=== PATIENT | male | born 1970 | race Caucasian/White ===

== ENCOUNTER 2018-01-16 16:32 | Emergency (ER) | payer BC, OTHER ==
[2018-01-16] MEDS ORDERED: SOD CHLORIDE 0.9% 1,000 ML IV (16:38)
[2018-01-16 17:24] LABS: ADD MAN DIFF? NO
[2018-01-16 17:26] LABS: WHITE BLOOD COUNT 6.7 10^3/ul (4.8-10.8)
[2018-01-16 17:26] LABS: BASOPHILS % 0.4 % (0.0-2.0); EOSINOPHILS # 0.1 10^3/ul (0.0-0.5); EOSINOPHILS % 2.1 % (0.0-7.0); HEMATOCRIT 42.4 % (42.0-52.0); HEMOGLOBIN 12.8 g/dl (14.0-18.0); LYMPHOCYTES # 1.6 10^3/ul (0.8-2.9); LYMPHOCYTES % 24.6 % (15.0-51.0); MEAN CORPUSCULAR HEMOGLOBIN 23.7 pg (29.0-33.0); MEAN CORPUSCULAR HGB CONC 30.2 g/dl (32.0-37.0); MEAN CORPUSCULAR VOLUME 78.4 fl (82.0-101.0); MEAN PLATELET VOLUME 9.7 fl (7.4-10.4); MONOCYTE # 0.6 10^3/ul (0.3-0.9); MONOCYTES % 8.4 % (0.0-11.0); NEUTROPHIL # 4.3 10^3/ul (1.6-7.5); NEUTROPHILS % 64.4 % (39.0-77.0); PLATELET COUNT 294 10^3/UL (140-415); RED BLOOD COUNT 5.41 10^6/ul (4.70-6.10); RED CELL DISTRIBUTION WIDTH 14.2 % (11.5-14.5)
[2018-01-16 17:42] LABS: INR 0.93; PROTIME 12.5 Sec (11.9-14.9)
[2018-01-16 17:43] LABS: PARTIAL THROMBOPLASTIN TIME 23.8 Sec (23.0-35.0)
[2018-01-16 17:44] LABS: HEMOGLOBIN A1C 4.6 % (0-5.9)
[2018-01-16 17:48] LABS: ALBUMIN 4.1 g/dl (3.3-4.9); ALKALINE PHOSPHATASE 86 IU/L (42-121); ASPARTATE AMINO TRANSFERASE 35 IU/L (15-46); BILIRUBIN,INDIRECT 0.4 mg/dl (0-1.1); BILIRUBIN,TOTAL 0.4 mg/dl (0.2-1.3); BLOOD UREA NITROGEN 16 mg/dl (7-20); CALCIUM 9.2 mg/dl (8.4-10.2); CHLORIDE 110 mmol/L (97-110); CHOL/HDL RATIO 4.2 RATIO; CHOLESTEROL 166 mg/dl (100-200); CREATININE 1.36 mg/dl (0.61-1.24); GLUCOSE 62 mg/dl (70-220); HDL CHOLESTEROL 39 mg/dl (27-67); LDL CHOLESTEROL,CALCULATED 90 mg/dl; SODIUM 146 mmol/L (135-144); TOTAL PROTEIN 7.5 g/dl (6.1-8.1); TRIGLYCERIDES 186 mg/dl (0-149)
[2018-01-16 17:49] LABS: ANION GAP 9 (5-13); CARBON DIOXIDE 27 mmol/L (21-31)
[2018-01-16 17:53] LABS: ALANINE AMINOTRANSFERASE 30 IU/L (13-69)
[2018-01-16 18:00] LABS: TROPONIN-I 0.022 ng/ml (0.000-0.120)
== END 2018-01-16 18:38 | disposition home or self-care (01) ==
LOC: E/R 16:32
DX: E16.2 Hypoglycemia, unspecified (principal); F17.210 Nicotine dependence, cigarettes, uncomplicated; R41.82 Altered mental status, unspecified
CPT/HCPCS: 36415; 70450; 71045; 72125; 80053; 80061; 83036; 84484; 85025; 85610; 85730; 93005; 99285-25